=== PATIENT | female | born 1955 | race Caucasian/White ===

== ENCOUNTER → 2024-05-24 07:10 | Outpatient (REF) | payer OTHER, SELFPAY | LOC: HWWDC 07:10 | PROVIDERS: ATTENDING PHYSICIAN Nurse Practitioner Adult Health | DX: Z12.31 Encounter for screening mammogram for malignant neoplasm of breast (principal) | CPT/HCPCS: 77063; 77067 ==

== ENCOUNTER 2024-12-02 06:12 | Day surgery (SDC) | payer OTHER, SELFPAY | END 2024-12-02 09:26 | disposition home or self-care (01) | LOC: GI 06:12 | PROVIDERS: ATTENDING PHYSICIAN Specialist | DX: Z12.11 Encounter for screening for malignant neoplasm of colon (principal); K57.30 Diverticulosis of large intestine without perforation or abscess without bleeding | CPT/HCPCS: G0121 ==